=== PATIENT | male | born 1940 | race Caucasian/White ===

== ENCOUNTER 2023-01-27 03:34 | Inpatient (IN) | payer OTHER, MEDICARE ==
[~2023-01-27] VITALS: Ht 172.7 cm; Wt 74.4 kg
[2023-01-27] VITALS (30 sets, daily range): BP systolic 119–166; BP diastolic 48–92; PULSE 43–84; RESP 10–16; TEMP 97.9–99; O2SAT 91–100
[2023-01-27] MEDS ORDERED: morphine 4 MG/ML inj SYRINge IV ONE ×2 (03:45→05:40)
[2023-01-27] MEDS ORDERED: normal saline 1000ML IV soln IVB ONE (03:45)
[2023-01-27] MEDS ORDERED: acetaminophen 325mg tablet PO ONE (03:55)
[2023-01-27 04:54] LABS: BASOPHILS # (AUTO) 0.1 X10'3 (0-0.2); BASOPHILS % (AUTO) 0.6 % (0-1); EOSINOPHILS # (AUTO) 0.3 X10'3 (0-0.9); EOSINOPHILS % (AUTO) 2.9 % (0-6); HEMATOCRIT 43.7 % (42.0-52.0); HEMOGLOBIN 14.6 g/dl (14.0-17.9); LYMPHOCYTES # (AUTO) 2.1 X10'3 (1.1-4.8); LYMPHOCYTES % (AUTO) 24.3 % (21-51); MEAN CORPUSCULAR HEMOGLOBIN 32.4 PG (27.0-31.0); MEAN CORPUSCULAR HGB CONC 33.3 g/dL (33.0-36.5); MEAN CORPUSCULAR VOLUME 97.4 FL (78-98); MEAN PLATELET VOLUME 9.3 FL (7.4-10.4); MONOCYTES # (AUTO) 0.7 X10'3 (0-0.9); MONOCYTES % (AUTO) 8.2 % (2-12); NEUTROPHILS # (AUTO) 5.7 X10'3 (1.8-7.7); PLATELET COUNT 272 X10'3 (140-440); RED BLOOD COUNT 4.49 X10'6 (4.70-6.10); RED CELL DISTRIBUTION WIDTH 14.6 % (11.5-14.5); WHITE BLOOD COUNT 8.8 X10'3 (4.5-11.0)
[2023-01-27 05:06] LABS: ANION GAP 11 (8-16); BLOOD UREA NITROGEN 15 MG/DL (7-18); CHLORIDE 105 MMOL/L (99-107); CREATININE 1.18 MG/DL (0.60-1.10); GLUCOSE 103 MG/DL (70-104); POTASSIUM 3.9 MMOL/L (3.5-5.1); SODIUM 140 MMOL/L (135-145); TOTAL CARBON DIOXIDE 24.1 MMOL/L (24-32)
[2023-01-27 05:07] LABS: ALANINE AMINOTRANSFERASE 22 U/L (12-78); ALBUMIN 3.7 G/DL (3.4-5.0); ALBUMIN/GLOBULIN RATIO 1.2 (1.1-1.5); ALKALINE PHOSPHATASE 89 IU/L (46-116); ASPARTATE AMINO TRANSFERASE 19 U/L (10-37); BILIRUBIN,TOTAL 0.8 MG/DL (0.1-1.0); BUN/CREATININE RATIO 12.7 (10.0-20.0); CALCIUM 9.1 MG/DL (8.5-10.1); LIPASE 1120 U/L (73-393); MAGNESIUM 1.9 MG/DL (1.5-2.4); TOTAL PROTEIN 6.8 G/DL (6.4-8.2); eCRCL 48 ML/MIN; eGFR 59 ML/MIN
[2023-01-27 05:21] LABS: BILIRUBIN,URINE NEGATIVE (Neg); CLARITY,URINE CLEAR (Clear); COLOR,URINE YELLOW (Yellow); GLUCOSE, URINE NEGATIVE (Neg); KETONES,URINE NEGATIVE (Neg); LEUKOCYTE ESTERASE ,URINE NEGATIVE (Neg); NITRITES, URINE NEGATIVE (Neg); OCCULT BLOOD,URINE TRACE-INTACT (Neg); PROTEIN,URINE NEGATIVE (Neg); UROBILINOGEN,URINE 0.2 E.U/dL (0.2-1.0)
[2023-01-27 05:28] LABS: UA COLLECTION TYPE CLN CATCH MIDSTREAM
[2023-01-27 05:29] LABS: BACTERIA,URINE FEW /HPF (Neg); MUCUS STRANDS FEW /LPF (Neg); SQUAMOUS EPITHELIAL CELL,UR FEW /LPF (FEW); WBC,URINE 0-4 /HPF (0-4)
[2023-01-27] MEDS ORDERED: ringers solution, lacted 1,000 ML IV SCH ×2 (08:30→12:55)
[2023-01-27] MEDS ORDERED: morphine 2 MG/ML inj. syringe IM ONE (08:45)
[2023-01-27 10:19] LABS: APTT 29 SECONDS (22-32); PROTHROMBIN TIME 10.7 SECONDS (9.0-12.0)
[2023-01-27] MEDS ORDERED: ondansetron/PF 4mg/2ml inj IV PRN ×2 (10:20→12:55)
[2023-01-27] MEDS ORDERED: metoclopramide 5 mg/ml inj IV PRN (10:20)
[2023-01-27] MEDS ORDERED: magnesium 2GM in 50ml NS 50 ML IV PRN (10:20)
[2023-01-27] MEDS ORDERED: mag hydrox/Alum hydrox/simeth 30ml oral suspension PO PRN (10:20)
[2023-01-27] MEDS ORDERED: acetaminophen 325mg tablet PO PRN (10:20)
[2023-01-27] MEDS ORDERED: magnesium hydroxide 30ml (MOM) UD suspension PO PRN (10:20)
[2023-01-27] MEDS ORDERED: potassium Cl 20 mEq SR tablet PO PRN ×2 (10:20)
[2023-01-27] MEDS ORDERED: acetaminophen 650mg rectal suppository RC PRN (10:20)
[2023-01-27] MEDS ORDERED: potassium Cl 40MEQ/1/2NS 520ml 520 ML IV PRN (10:20)
[2023-01-27] MEDS ORDERED: HYDROmorphone/PF 0.2 MG/ML SYRINGE IV PRN (10:20)
[2023-01-27] MEDS ORDERED: magnesium 4gm in 100ml NS 100 ML IV PRN (10:20)
[2023-01-27] MEDS ORDERED: magnesium Cl slow-release 64mg tablet PO PRN (10:20)
[2023-01-27] MEDS ORDERED: ondansetron 4mg rapidly disintigrating tab PO PRN (10:20)
--- NOTE | 2023-01-27 11:10 | NUR ---
recieved report from Marita Calvert RN charge at 1005 assumed care of pt at 1035. Pt presented AOx4 09/22 abd pain post morphine admin by previous RN. vs at 1112 131/72 42 14 96RA. Pt placed on O2 at 2 L for transport to pass unit. Pass unit RN notified of pt's current HR. Pt declines cp sob at present time. Dr. Dooley notified of pt's current HR. Addendum: 01/27/23 at 1113 by MASOOD Pt transported to Pass unit via tech no IVF infusing NS Liter completed just prior to exit out of unit.
--- NOTE | 2023-01-27 11:15 | NUR ---
Patient in room 246a. I have received report from Marita and had the opportunity to ask questions and assume patient care. SBP 160's with HR 40-50's: MD burnette. Addendum: 01/27/23 at 1258 by Mulu Tomas RN PATIENT REMAINS ASYMPTOMATIC. NO C/O PAIN OR NAUSEA AT THIS TIME.
--- NOTE | 2023-01-27 11:25 | NUR ---
Patient's vs 167/78, HR 44, 99% on RA. Patient states HR is normally in the 60's with SBP 180's. No vomiting, just nauseous with minimal spitting, no pain except on palpation, no neurological symptoms, ZUNI, wears hearing aids. Accompanied by family. MD Salmeron in room examining the patient.
[2023-01-27] MEDS: piperacillin/tazo 3.375gm/50ml 50 ML IV SCH ×2 (11:39→20:13)
[2023-01-27] MEDS ORDERED: ringers solution, lacted 1,000 ML IV ONE (11:40)
[2023-01-27] MEDS ORDERED: famotidine 20mg tablet PO STA (11:40)
--- NOTE | 2023-01-27 12:25 | NUR ---
[facility] TO [facility], REQUEST OF MEDS PLACED IN FRONT OF CHART. WILL UPDATE MEDS UPON RECEIPT OF MED LIST. PATIENT IS NOT ABLE TO TELL ME THE WHOLE LIST OF MEDICATIONS.
[2023-01-27] MEDS ORDERED: sevoflurane 250ml liquid IH ONE (12:47)
--- NOTE | 2023-01-27 12:54 | NUR ---
PATIENT TAKEN TO OR BY OR STAFF. 1 PERSONAL BAG WITH PATIENT LABEL TAKEN TO RR, FRIEND BRENDAN SHOWN TO WAITING ROOM. MEDICATION LIST IS STILL NOT AVAILABLE, WILL UPDATE UPON RECEIPT.
[2023-01-27] MEDS ORDERED: hydrALAZINE 20mg/ml inj. IV PRN (12:55)
[2023-01-27] MEDS ORDERED: morphine 2 MG/ML inj. syringe IV PRN (12:55)
[2023-01-27] MEDS ORDERED: meperidine/PF 25mg/ml syringe IV PRN ×3 (12:55)
[2023-01-27] MEDS ORDERED: proCHLORperazine 10 MG/2 ml inj IV PRN (12:55)
[2023-01-27] MEDS ORDERED: morphine 4 MG/ML inj SYRINge IV PRN (12:55)
[2023-01-27] MEDS ORDERED: acetaminophen 1,000mg/100ml IV 100 ML IV PRN (12:55)
[2023-01-27] MEDS ORDERED: labetalol 20mg/4ml (5mg/ml) syringe IV PRN (12:55)
[2023-01-27] MEDS ORDERED: fentaNYL/PF 50MCG/1 ML 2ML syringe ONE (12:57)
[2023-01-27] MEDS ORDERED: BUPIVAcaine/PF 2.5mg/ml (0.25%) 10ml vial ONE (13:14)
[2023-01-27] MEDS ORDERED: BUPIVACAINE liposomal/PF 13.3 MG/ML vial IM ONE ×2 (13:15→13:49)
[2023-01-27] MEDS ORDERED: rocuronium 10mg/ml inj IV ONE (13:27)
[2023-01-27] MEDS ORDERED: glycopyrrolate 0.2mg/ml inj ONE (13:27)
[2023-01-27] MEDS ORDERED: midazolam 1 mg/ML 2ml injection ONE (13:27)
[2023-01-27] MEDS ORDERED: LIDOcaine 2% (20mg/ml) 5ml vial ONE (13:27)
[2023-01-27] MEDS ORDERED: propofol inj 20 ML IV ONE (13:27)
[2023-01-27] MEDS ORDERED: ondansetron/PF 4mg/2ml inj ONE (13:28)
[2023-01-27] MEDS ORDERED: dexamethasone sod phosphate 4mg/ml inj. ONE (13:28)
[2023-01-27] MEDS ORDERED: sugammadex 200mg/2ml injection IV ONE (13:41)
[2023-01-27] MEDS ORDERED: BUPIVAcaine/PF 2.5 mg/ml (0.25%) 30ml vial IJ ONE (13:49)
--- NOTE | 2023-01-27 13:50 | NUR ---
Received from OR via HOSPITAL BED , accompanied by Anesthesiologist and report given by GASPER Anesthesiologist. PATIENT WAKING UP, DENIES PAIN, V/S WNL, SCD ON , PIV 20G MATIAS WALKER SITES CLOSED C/D/I TO ABDOMEN. ANGELES CATHETER DRAINING CLEAR YELLOW URINE. Addendum: 01/27/23 at 1418 by Bijan Kwon RN Amended: Links added.
[2023-01-27] MEDS ORDERED: SIMV-45 PO (14:37)
[2023-01-27] MEDS ORDERED: SILD100T PO (14:37)
[2023-01-27] MEDS ORDERED: AMLO2.5T2 PO (14:37)
[2023-01-27] MEDS ORDERED: METH2.5T55 PO (14:37)
[2023-01-27] MEDS ORDERED: CETI10TA15 PO (14:37)
[2023-01-27] MEDS ORDERED: GUAI400T92 PO (14:37)
[2023-01-27] MEDS ORDERED: MELO-100 PO (14:37)
--- NOTE | 2023-01-27 14:38 | NUR ---
REC'D MED REC VIA FAX FROM [facility]. UPDATED MED REC WITH NOTES OF "patient unable to verify/recall last dose taken" HE WAS NOT ABLE TO TELL ME WHAT HE TOOK LAST NIGHT AT HOME. WILL PLACE IN CHART WHEN PATIENT GETS OUT OF OR AND INTO RR.
[2023-01-27] MEDS ORDERED: OLOP5DRO26 RIGHTEYE (15:17)
[2023-01-27] MEDS ORDERED: ASPI81TA52 PO (15:17)
[2023-01-27] MEDS ORDERED: GUAI200T5 PO (15:17)
[2023-01-27] MEDS ORDERED: MULT-1085 PO (15:17)
[2023-01-27] MEDS ORDERED: CARB-226 EACHEYE (15:17)
[2023-01-27] MEDS ORDERED: CYCL1DRO EACHEYE (15:17)
--- NOTE | 2023-01-27 17:05 | NUR ---
PATIENT HAS MET ALL CRITERIA FOR TRANSFER TO ORTHO FLOOR. VSS. DRESSINGS INTACT. BED LOW, CALL LIGHT PRESENT AND 2 RAILS UP. RN PRESENT TO ACCEPT CARE OF PATIENT AND REPORT HAS BEEN CALLED. ALL QUESTIONS ANSWERED TO ACCEPTING RN. Addendum: 01/27/23 at 1717 by Bijan Kwon RN Amended: Links added.
[2023-01-27] MEDS ORDERED: cetirizine 10mg tablet PO PRN (18:15)
[2023-01-27] MEDS: K and/or MAG REPLACEMENT MC SCH (20:00)
[2023-01-27] MEDS: docusate sod 100mg capsule PO SCH (20:13)
[2023-01-27] MEDS: heparin, porcine 5000 units/ml vial SQ SCH (20:14)
[2023-01-27] MEDS: cycloSPORINE 0.05% ophthalmic emulsion EACHEYE SCH (20:16)
[2023-01-27] MEDS: polyvinyl alcohol ophthalmic drops 15ml bottle EACHEYE SCH (20:22)
[2023-01-27] MEDS ORDERED: temazepam 15mg capsule PO PRN (21:00)
[2023-01-27] MEDS: normal saline 1000ml 1,000 ML IV SCH ×2 (23:43→23:44)
[2023-01-28] MEDS: piperacillin/tazo 3.375gm/50ml 50 ML IV SCH ×4 (01:31→23:49)
[2023-01-28] MEDS: polyvinyl alcohol ophthalmic drops 15ml bottle EACHEYE SCH ×5 (05:15→21:47)
[2023-01-28 06:00] VITALS: BP 120/48; PULSE 47; RESP 15; TEMP 97.6; O2SAT 97
--- NOTE | 2023-01-28 06:00 | NUR ---
Patient in room ORTHO 4024. I have received report from SHAHLA Hooper and had the opportunity to ask questions and assume patient care.
[2023-01-28 06:14] LABS: BASOPHILS % (AUTO) 0.1 % (0-1); EOSINOPHILS % (AUTO) 0 % (0-6); HEMATOCRIT 40.2 % (42.0-52.0); HEMOGLOBIN 13.4 g/dl (14.0-17.9); LYMPHOCYTES # (AUTO) 0.8 X10'3 (1.1-4.8); LYMPHOCYTES % (AUTO) 5.3 % (21-51); MEAN CORPUSCULAR HEMOGLOBIN 32.3 PG (27.0-31.0); MEAN CORPUSCULAR HGB CONC 33.4 g/dL (33.0-36.5); MEAN CORPUSCULAR VOLUME 96.7 FL (78-98); MEAN PLATELET VOLUME 9.7 FL (7.4-10.4); MONOCYTES # (AUTO) 0.8 X10'3 (0-0.9); MONOCYTES % (AUTO) 5.5 % (2-12); NEUTROPHILS # (AUTO) 12.8 X10'3 (1.8-7.7); NEUTROPHILS % (AUTO) 89.1 % (42-75); PLATELET COUNT 259 X10'3 (140-440); RED BLOOD COUNT 4.15 X10'6 (4.70-6.10); RED CELL DISTRIBUTION WIDTH 14.1 % (11.5-14.5); WHITE BLOOD COUNT 14.4 X10'3 (4.5-11.0)
--- NOTE | 2023-01-28 06:20 | NUR ---
Problems reprioritized. Patient report given, questions answered & plan of care reviewed with obdulio Hopkins.
[2023-01-28 06:32] LABS: ALANINE AMINOTRANSFERASE 19 U/L (12-78); ALBUMIN 3.1 G/DL (3.4-5.0); ALKALINE PHOSPHATASE 75 IU/L (46-116); ANION GAP 11 (8-16); ASPARTATE AMINO TRANSFERASE 21 U/L (10-37); BILIRUBIN,TOTAL 1.1 MG/DL (0.1-1.0); BLOOD UREA NITROGEN 15 MG/DL (7-18); BUN/CREATININE RATIO 10.6 (10.0-20.0); CALCIUM 8.2 MG/DL (8.5-10.1); CHLORIDE 104 MMOL/L (99-107); CREATININE 1.42 MG/DL (0.60-1.10); GLUCOSE 164 MG/DL (70-104); POTASSIUM 4.2 MMOL/L (3.5-5.1); SODIUM 140 MMOL/L (135-145); TOTAL CARBON DIOXIDE 25.2 MMOL/L (24-32); TOTAL PROTEIN 6.1 G/DL (6.4-8.2); eCRCL 39 ML/MIN; eGFR 48 ML/MIN
[2023-01-28] MEDS: K and/or MAG REPLACEMENT MC SCH ×2 (08:00→20:00)
--- NOTE | 2023-01-28 08:18 | NUR ---
Page Sent PAGER ID: [phone] MESSAGE: [phone] marin arias pt has no diet order, can he start with CL? martina [phone]
[2023-01-28 08:29] LABS: LIPASE 51 U/L (73-393)
[2023-01-28] MEDS: aspirin 81mg, enteric-coated 1 TAB TABLET.DR PO SCH (09:20)
[2023-01-28] MEDS: docusate sod 100mg capsule PO SCH (09:21)
[2023-01-28] MEDS: amLODIPine 2.5mg tablet PO SCH (09:22)
[2023-01-28] MEDS: cycloSPORINE 0.05% ophthalmic emulsion EACHEYE SCH ×2 (09:23→21:45)
[2023-01-28] MEDS: heparin, porcine 5000 units/ml vial SQ SCH ×2 (09:27→21:45)
[2023-01-28 10:00] VITALS: BP 145/61; PULSE 68; RESP 16; TEMP 98.2; O2SAT 98
[2023-01-28] MEDS: normal saline 1000ml 1,000 ML IV SCH ×2 (10:56→21:34)
[2023-01-28] MEDS: guaiFENesin ER 600mg tablet PO SCH ×2 (12:50→21:46)
--- NOTE | 2023-01-28 15:39 | NUR ---
rn psych: I have reviewed and agree with all interventions, assessments performed and documented by kasandra mak.
[2023-01-28] MEDS: HYDROmorphone inj. 0.5 MG/0.5 ML DISP.SYRIN IV PRN ×2 (17:16→21:48)
[2023-01-28 18:00] VITALS: BP 135/55; PULSE 53; RESP 18; TEMP 98.4; O2SAT 95
--- NOTE | 2023-01-28 18:10 | NUR ---
Patient in room ORTHO 4024. I have received report from Jm GALE and had the opportunity to ask questions and assume patient care.
--- NOTE | 2023-01-28 18:36 | NUR ---
Problems reprioritized. Patient report given, questions answered & plan of care reviewed with jessica mak.
[2023-01-28 20:00] VITALS: RESP 18; O2SAT 95
[2023-01-28 22:00] VITALS: BP 119/63; PULSE 63; RESP 14; TEMP 97.6; O2SAT 98
--- NOTE | 2023-01-29 05:00 | NUR ---
Patient in room ORTHO 4024. I have received report from Peyton GALE and had the opportunity to ask questions and assume patient care.
[2023-01-29 06:00] VITALS: BP 131/53; PULSE 54; RESP 13; TEMP 97.3; O2SAT 97
--- NOTE | 2023-01-29 07:00 | NUR ---
Verbally spoke with Dr. Archuleta. Patient is able to be advanced to Clear liquid diet, change dressing PRN and take a shower. orders are placed
[2023-01-29 07:44] LABS: BASOPHILS % (AUTO) 0.2 % (0-1); EOSINOPHILS # (AUTO) 0.1 X10'3 (0-0.9); EOSINOPHILS % (AUTO) 0.4 % (0-6); HEMATOCRIT 36.9 % (42.0-52.0); HEMOGLOBIN 12.3 g/dl (14.0-17.9); LYMPHOCYTES # (AUTO) 1.5 X10'3 (1.1-4.8); LYMPHOCYTES % (AUTO) 12.1 % (21-51); MEAN CORPUSCULAR HEMOGLOBIN 32.2 PG (27.0-31.0); MEAN CORPUSCULAR HGB CONC 33.2 g/dL (33.0-36.5); MEAN CORPUSCULAR VOLUME 96.9 FL (78-98); MEAN PLATELET VOLUME 9.7 FL (7.4-10.4); MONOCYTES # (AUTO) 1.1 X10'3 (0-0.9); NEUTROPHILS % (AUTO) 78.3 % (42-75); PLATELET COUNT 212 X10'3 (140-440); RED CELL DISTRIBUTION WIDTH 14.4 % (11.5-14.5); WHITE BLOOD COUNT 12.8 X10'3 (4.5-11.0)
[2023-01-29 07:54] LABS: ALANINE AMINOTRANSFERASE 21 U/L (12-78); ALBUMIN 2.9 G/DL (3.4-5.0); ALBUMIN/GLOBULIN RATIO 1.1 (1.1-1.5); ALKALINE PHOSPHATASE 63 IU/L (46-116); ANION GAP 8 (8-16); ASPARTATE AMINO TRANSFERASE 33 U/L (10-37); BLOOD UREA NITROGEN 18 MG/DL (7-18); BUN/CREATININE RATIO 16.8 (10.0-20.0); CHLORIDE 108 MMOL/L (99-107); CREATININE 1.07 MG/DL (0.60-1.10); GLUCOSE 90 MG/DL (70-104); LIPASE < 50 U/L (73-393); SODIUM 141 MMOL/L (135-145); TOTAL CARBON DIOXIDE 24.9 MMOL/L (24-32); TOTAL PROTEIN 5.6 G/DL (6.4-8.2); eCRCL 52 ML/MIN; eGFR 66 ML/MIN
[2023-01-29 08:00] VITALS: RESP 13; O2SAT 97
[2023-01-29] MEDS: guaiFENesin ER 600mg tablet PO SCH ×3 (08:00→20:10)
[2023-01-29] MEDS: heparin, porcine 5000 units/ml vial SQ SCH ×2 (08:00→20:10)
[2023-01-29] MEDS: cycloSPORINE 0.05% ophthalmic emulsion EACHEYE SCH ×2 (08:00→20:08)
[2023-01-29] MEDS: aspirin 81mg, enteric-coated 1 TAB TABLET.DR PO SCH (08:00)
[2023-01-29] MEDS: K and/or MAG REPLACEMENT MC SCH ×2 (08:00→20:00)
[2023-01-29] MEDS: amLODIPine 2.5mg tablet PO SCH (08:00)
[2023-01-29] MEDS: piperacillin/tazo 3.375gm/50ml 50 ML IV SCH (08:01)
[2023-01-29] MEDS: normal saline 1000ml 1,000 ML IV SCH (08:02)
[2023-01-29] MEDS: polyvinyl alcohol ophthalmic drops 15ml bottle EACHEYE SCH ×4 (08:54→20:08)
[2023-01-29 10:00] VITALS: BP 140/64; PULSE 52; RESP 16; TEMP 98.1; O2SAT 97
--- NOTE | 2023-01-29 11:33 | NUR ---
Problems reprioritized. Patient report given, questions answered & plan of care reviewed with Amanda MANCERA.
[2023-01-29] MEDS: ciprofloxacin lact 400MG/200ML 200 ML IV SCH ×2 (12:09→20:40)
[2023-01-29] MEDS: metroNIDAZOLE-Flagyl 500mg/NS 100 ML IV SCH ×2 (13:55→20:09)
--- NOTE | 2023-01-29 15:05 | NUR ---
ELECTROENCEPHALOGRAPHIC TECHNOLOGIST documentation: I have reviewed and agree with all interventions, assessments performed and documented by Nikki Kaur LVN.
[2023-01-29] MEDS ORDERED: morphine 2 MG/ML inj. syringe IV PRN ×2 (17:50)
[2023-01-29 18:00] VITALS: BP 152/67; PULSE 59; RESP 16; TEMP 98.3; O2SAT 97
--- NOTE | 2023-01-29 19:00 | NUR ---
Patient in room ORTHO 4024. I have received report from CALDERON Maxwell and had the opportunity to ask questions and assume patient care. Addendum: 01/29/23 at 1901 by Alta Monroe RN Amended: Links added.
[2023-01-29 20:00] VITALS: RESP 14; O2SAT 94
[2023-01-29] MEDS ORDERED: HYDROcodone/acetaminophen 10/325mg tab PO PRN (20:30)
[2023-01-29] MEDS ORDERED: HYDROcodone/acetaminophen 5mg/325mg tablet PO PRN ×2 (20:30→20:35)
[2023-01-29 22:00] VITALS: BP 120/46; PULSE 52; RESP 13; TEMP 97.5; O2SAT 94
[2023-01-30] MEDS: polyvinyl alcohol ophthalmic drops 15ml bottle EACHEYE SCH ×5 (02:42→14:00)
[2023-01-30] MEDS: normal saline 1000ml 1,000 ML IV SCH ×2 (02:42→13:24)
[2023-01-30 06:00] VITALS: BP 135/66; PULSE 60; RESP 13; TEMP 97.9; O2SAT 97
--- NOTE | 2023-01-30 06:30 | NUR ---
Problems reprioritized. Patient report given, questions answered & plan of care reviewed with SHAHLA Storm. Addendum: 01/30/23 at 0700 by Alta Mnoroe RN Amended: Links added.
[2023-01-30] MEDS: K and/or MAG REPLACEMENT MC SCH (08:00)
[2023-01-30] MEDS: metroNIDAZOLE-Flagyl 500mg/NS 100 ML IV SCH (08:04)
[2023-01-30] MEDS: cycloSPORINE 0.05% ophthalmic emulsion EACHEYE SCH (08:06)
[2023-01-30] MEDS: guaiFENesin ER 600mg tablet PO SCH ×2 (08:07→12:23)
[2023-01-30] MEDS: aspirin 81mg, enteric-coated 1 TAB TABLET.DR PO SCH (08:08)
[2023-01-30] MEDS: amLODIPine 2.5mg tablet PO SCH (08:11)
[2023-01-30 08:17] LABS: BASOPHILS # (AUTO) 0.1 X10'3 (0-0.2); BASOPHILS % (AUTO) 0.6 % (0-1); EOSINOPHILS # (AUTO) 0.2 X10'3 (0-0.9); EOSINOPHILS % (AUTO) 1.6 % (0-6); HEMATOCRIT 43.8 % (42.0-52.0); HEMOGLOBIN 14.5 g/dl (14.0-17.9); LYMPHOCYTES # (AUTO) 1.8 X10'3 (1.1-4.8); LYMPHOCYTES % (AUTO) 15.1 % (21-51); MEAN CORPUSCULAR HEMOGLOBIN 32.3 PG (27.0-31.0); MEAN CORPUSCULAR HGB CONC 33.1 g/dL (33.0-36.5); MEAN CORPUSCULAR VOLUME 97.4 FL (78-98); MEAN PLATELET VOLUME 10.2 FL (7.4-10.4); MONOCYTES # (AUTO) 0.7 X10'3 (0-0.9); MONOCYTES % (AUTO) 5.7 % (2-12); NEUTROPHILS # (AUTO) 9.3 X10'3 (1.8-7.7); PLATELET COUNT 284 X10'3 (140-440); RED CELL DISTRIBUTION WIDTH 14.6 % (11.5-14.5); WHITE BLOOD COUNT 12.1 X10'3 (4.5-11.0)
[2023-01-30] MEDS: heparin, porcine 5000 units/ml vial SQ SCH (08:21)
[2023-01-30 08:46] LABS: ALANINE AMINOTRANSFERASE 29 U/L (12-78); ALBUMIN 3.6 G/DL (3.4-5.0); ALKALINE PHOSPHATASE 81 IU/L (46-116); ANION GAP 11 (8-16); ASPARTATE AMINO TRANSFERASE 35 U/L (10-37); BILIRUBIN,TOTAL 1.1 MG/DL (0.1-1.0); BLOOD UREA NITROGEN 12 MG/DL (7-18); BUN/CREATININE RATIO 10.2 (10.0-20.0); CALCIUM 8.5 MG/DL (8.5-10.1); CHLORIDE 104 MMOL/L (99-107); CREATININE 1.18 MG/DL (0.60-1.10); GLUCOSE 102 MG/DL (70-104); LIPASE 445 U/L (73-393); POTASSIUM 3.4 MMOL/L (3.5-5.1); SODIUM 141 MMOL/L (135-145); TOTAL CARBON DIOXIDE 26.4 MMOL/L (24-32); TOTAL PROTEIN 7.2 G/DL (6.4-8.2); eCRCL 48 ML/MIN; eGFR 59 ML/MIN
[2023-01-30 10:00] VITALS: BP 135/66; PULSE 52; RESP 16; TEMP 98.1; O2SAT 97
[2023-01-30] MEDS: ciprofloxacin lact 400MG/200ML 200 ML IV SCH (10:00)
--- NOTE | 2023-01-30 10:58 | NUR ---
patients K+ 3.4, replacement protocol d/c. RN asked Dr Castro if shw wants to reinstate protocol to replace. Gloria stated not at this time
[2023-01-30] MEDS ORDERED: CIPR-259 PO ×3 (16:57→17:43)
[2023-01-30] MEDS ORDERED: METR-159 PO ×3 (16:57→17:43)
== END 2023-01-30 17:49 | disposition home or self-care (01) | DRG 335 ==
LOC: ER 03:36 → UNDOADMIN 10:22 → ED HOLD 10:22 → ORTHO 4S 17:10 → ED HOLD 17:10 → ORTHO 4S 18:17
PROVIDERS: ADMIT Family Medicine; ATTEND Internal Medicine
PROC: 0DNW0ZZ Release Peritoneum, Open Approach (ICD-10-PCS; principal; 2023-01-27 12:47)
DX: K56.2 Volvulus (principal); K85.90 Acute pancreatitis without necrosis or infection, unspecified; K46.0 Unspecified abdominal hernia with obstruction, without gangrene; N17.9 Acute kidney failure, unspecified; E78.00 Pure hypercholesterolemia, unspecified; M06.9 Rheumatoid arthritis, unspecified; E86.0 Dehydration; I10 Essential (primary) hypertension; G89.29 Other chronic pain; R00.1 Bradycardia, unspecified; L40.50 Arthropathic psoriasis, unspecified; Z85.46 Personal history of malignant neoplasm of prostate; Z90.49 Acquired absence of other specified parts of digestive tract; Z90.79 Acquired absence of other genital organ(s); Z88.8 Allergy status to other drugs, medicaments and biological substances; Z79.899 Other long term (current) drug therapy
CPT/HCPCS: 36415; 71045; 74176; 80053; 81001; 82948; 83605; 83690; 83735; 85025; 85610; 85730; 86885; 86900; 86901; 87040; 99285; A4615; A4618; A4624; A6449; A7000; C1758; C9290; G0378; J0744; J1100; J1170; J1644; J2250; J2270; J2405; J2543; J2704; J3010; J3490; J7030; J7120